=== PATIENT | male | born 1960 | race Two or more races ===

== ENCOUNTER 2018-05-30 17:00 | Inpatient (IN) | payer OTHER ==
[2018-05-30 17:22] VITALS: BMI 27.1
--- NOTE | 2018-05-30 17:26 | PDOC ---
History of Present Illness - General Chief Complaint: Injury Stated Complaint: FALL Time Seen by Provider: 05/30/18 17:26 Past History - Past Medical History Allergies/Adverse Reactions: Allergies Allergy/AdvReac Type Severity Reaction Status Date / Time No Known Allergies Allergy Verified 05/30/18 17:14 Home Medications: Ambulatory Orders Lisinopril 0 mg PO DAILY 05/30/18 COPD: No HTN: Yes - Suicide/Smoking/Psychosocial Hx Smoking History: Never smoked Hx Alcohol Use: Yes Drug/Substance Use Hx: No *Physical Exam - Vital Signs Last Vital Signs Temp Pulse Resp BP Pulse Ox 98.5 F 106 H 18 134/95 96 05/30/18 17:00 05/30/18 17:00 05/30/18 17:00 05/30/18 17:00 05/30/18 17:00
--- NOTE | 2018-05-30 17:40 | PDOC ---
History of Present Illness - General Chief Complaint: Injury Stated Complaint: FALL Time Seen by Provider: 05/30/18 17:26 History Source: Patient Exam Limitations: No Limitations - History of Present Illness Initial Comments: 57 yo M w a hx of HTN taking lisinopril presents to the ER after he slipped on a puddle of water and fell down hit his head, face, and hand on a glass table which broke. The patient sustained several laccerations to his head, one to his face and one to his wrist. The patient denies currently being in any pain from the fall, denies having a headache or nausea, and denies shortness of breath. He endorses significant left thumb weakness and decreased sensation. The patient also has mild weakness of his left pointer and middle finger but in tact sensation in the 2nd and 3rd left digits. The patient admits to having [address] Ramos - [phone] PCP: Mamie Owusu PSH: None reported Social Hx: drank 1 beer today, denies smoking or other substance usage. Allergies: NKA, NKDA Past History - Past Medical History Allergies/Adverse Reactions: Allergies Allergy/AdvReac Type Severity Reaction Status Date / Time No Known Allergies Allergy Verified 05/30/18 17:14 Home Medications: Ambulatory Orders Lisinopril 0 mg PO DAILY 05/30/18 COPD: No HTN: Yes - Suicide/Smoking/Psychosocial Hx Smoking History: Never smoked Hx Alcohol Use: Yes Drug/Substance Use Hx: No Review of Systems - Review of Systems Able to Perform ROS?: Yes Comments:: CONSTITUTIONAL: Absent: fever, no chills, no fatigue EYES: Absent: visual changes ENT: Absent: ear pain, no sore throat CARDIOVASCULAR: Absent: chest pain, no palpitations RESPIRATORY: Absent: cough, no SOB GI: Absent: abdominal pain, no nausea, no vomiting, no constipation, no diarrhea GENITOURINARY: Absent: dysuria, no frequency, no hematuria MUSKULOSKELETAL: Absent: back pain, no arthralgia, no myalgia SKIN: Absent: rash NEURO: Absent: headache *Physical Exam - Vital Signs Last Vital Signs Temp Pulse Resp BP Pulse Ox 98.5 F 106 H 18 134/95 96 05/30/18 17:00 05/30/18 17:00 05/30/18 17:00 05/30/18 17:00 05/30/18 17:00 - Physical Exam Comments: GENERAL: Patient is awake, alert and in no acute distress. Speech is clear and appropriate. HEAD: There are 4 lacerations on the Head in the parietal and occipital regions. He also has a small laceration to the left orbit. Nontender. HEENT: Pupils are equal round and reactive to light, extraocular movements are intact. The tympanic membranes are clear, no hemotympanum. No facial bone tenderness or step-off. No nasal septal hematoma. The oropharynx is clear. NECK: The trachea is midline, there is no stridor. There is no midline cervical spine tenderness, full range of motion of neck. CHEST: Non-tender, no ecchymosis or abrasions. Equal chest wall expansion bilaterally. No flail segments. Lungs are clear to auscultation bilaterally. CARDIOVASCULAR: S1-S2, regular rate and rhythm. No murmurs or rubs. ABDOMEN: Soft, nontender, nondistended. Bowel sounds are normoactive. There is no abdominal or flank ecchymosis. BACK/PELVIS: There is no midline thoracic or lumbosacral spine tenderness or step-off. Pelvis is stable and nontender. EXTREMITIES: Left hand: There is a 3 cm laceration on the left wrist approximately 2.5 cm deep. The patient has minimall strength of the left thumb. Decreased strength in the left 2nd and 3rd digit. Decreased sensation in the left thumb. Normal sensation elsewhere.No focal bony tenderness throughout. 2+ distal pulses throughout. NEURO: Alert and oriented x3. Cranial nerves II through XII are intact. 5 out of 5 motor strength x3 extremities. No other gross sensory deficits besides thumb. [id number] is intact. No pronator drift. Gait is stable. SKIN: Multiple abrasions, no hematomas, multiple lacerations. PSYCH: Affect is appropriate Procedures - Laceration/Wound Repair Left Lateral Distal Plantar Wrist Wound Length: 2.6 to 5.0 cm Wound Explored: clean, no foreign body present Wound's Depth, Shape: into muscle Irrigated w/ Saline: Yes Anesthesia: 1% Lidocaine Amount of Anesthetic (ccs): 5 Wound Repaired With: Sutures Suture Size/Type: 3:0 (1 horizontal mattress suture) Number of Deep Layer Sutures: 0 Sterile Dressing Applied: Yes Splint Applied: No Right Parietal Wound Length: 2.6 to 5.0 cm Wound Explored: foreign body removed (3 mm foreign body taken out) Wound's Depth, Shape: irregular Irrigated w/ Saline: Yes Betadine Prep: Yes Wound Debrided: minimal Wound Repaired With: [facility] (3 dede) Sterile Dressing Applied: Yes Left Temporal Wound Length: 2.6 to 5.0 cm Wound's Depth, Shape: irregular Irrigated w/ Saline: Yes Wound Repaired With: [facility] (3 dede) Sterile Dressing Applied: Yes ED Treatment Course - LABORATORY CBC & Chemistry Diagram: 05/30/18 18:20 05/30/18 18:20 Medical Decision Making - Medical Decision Making 57 yo M w a hx of HTN taking lisinopril presents to the ER after he slipped on a puddle of water and fell down hit his head, face, and hand on a glass table which broke. The patient sustained several laccerations to his head, one to his face and one to his wrist. The patient denies currently being in any pain from the fall, denies having a headache or nausea, and denies shortness of breath. He endorses significant left thumb weakness and decreased sensation. The patient also has mild weakness of his left pointer and middle finger but in tact sensation in the 2nd and 3rd left digits. The patient admits to having [address] Ramos - [phone] VS: tachycardic, otherwise wnl. Plan: Surgery - Dr. Ramos consult, pre-op labs, head ct, hand/wrist x-rays, admit patient to Dr. Ramos. Spoke with Dr. Ramos. Will clean hand, numb it up, place one suture, draw pre- op labs and Dr. Ramos will come and repair the patient's extensor tendon injury. Head CT showed small 3 mm foreign body, otherwise no acute brain injury. - 3 mm foreign body identified after thorough irrigation and removed from head. Patient had 6 lacerations on the head: 1) Right parietal - T shaped lac 4x3. 1.5 cm deep. - 3 dede placed for closure 2) right occipital - 6 cm linear lac. 0.25 cm deep - Dermabond used to close 3) right occipital #2 - 4 cm lac. 0.25 cm deep - Dermabond used to close 4) Left parietal - 5 cm lac, 0.5 cm deep - 3 dede used to close 5) Right frontal -6 cm lac. 0.25 cm deep - Dermabond used to close 6) Right frontal #2 - 4 cm lac. 0.25 cm deep - Dermabond used to close Left hand lac: Placed 1 horizontal mattress suture to temporarily hold wound closed until Dr. Ramos can operate. Patient is ready for Dr. Ramos in the OR. Admitted to Dr. Ramos service. *DC/Admit/Observation/Transfer Diagnosis at time of Disposition: Fall Qualifiers: Encounter type: initial encounter Qualified Code(s): W19.XXXA - Unspecified fall, initial encounter Wrist laceration Qualifiers: Encounter type: initial encounter Laterality: left Qualified Code(s): S61.512A - Laceration without foreign body of left wrist, initial encounter Laceration of head Qualifiers: Encounter type: initial encounter Location of open wound of head: scalp Foreign body presence: without foreign body Qualified Code(s): S01.01XA - Laceration without foreign body of scalp, initial encounter - Discharge Dispostion Condition at time of disposition: Stable - Referrals - Patient Instructions - Post Discharge Activity
--- NOTE | 2018-05-30 17:56 | PDOC ---
Attending Attestation - Resident Resident Name: Theron Silva - ED Attending Attestation I have performed the following: I have examined & evaluated the patient, The case was reviewed & discussed with the resident, I agree w/resident's findings & plan, Exceptions are as noted - Medical Decision Making 05/30/18 17:59 A portion of this note was documented by scribe services under my direction. I have reviewed the details of the note, within reason, and agree with the documentation with the following case summary and management plan written by me. Patient treated in the ED. Nursing notes are reviewed and incorporated into the medical decision-making. Vital signs reviewed. Peripheral IV access obtained by the nurse, laboratory studies are drawn and sent, reviewed and interpreted by myself. Vital Signs Temp Pulse Resp BP Pulse Ox 98.5 F 106 H 18 134/95 96 05/30/18 17:00 05/30/18 17:00 05/30/18 17:00 05/30/18 17:00 05/30/18 17:00 57-year-old male hypertension presents with mechanical fall. The patient reported that he slipped and fell and a glass shattered. He sustained a large laceration to the left scalp as well as a superficial left eyebrow laceration. Sustained a very deep left lateral wrist laceration with associated numbness of the first and second digit. Reports inability to flex or extend the left thumb. The patient is right-hand dominant. Last tetanus status is unknown. Also with R posterior scalp laceration. We had emergently consulted Dr. Ramos, surgeon and hand. He stated that the patient should go to the operating room immediately. Requested suffers on and tetanus. Patient we'll obtain a head CT for the head injury as well as left wrist x-ray to rule out foreign bodies. We'll update tetanus. Admit the patient to the OR under Dr. Koehler. For the scalp and face, we will irrigated extensively and determine if pt needs stapling or suturing. 05/30/18 18:39 CT head shows no ICH but with a small radiodense FB in R scalp. Will need to remove this. Hand xray reviewed by me, pending official radiology read. No foreign body noted. <Scout Chapin - Last Filed: 05/30/18 18:39> - HPI HPI: 05/30/18 18:06 The patient is a 57 year old male with a past medical history of HTN brought in by EMS today for evaluation s/p fall. The patient reports that he was in his kitchen when he slipped on a puddle and fell and reports that a glass broke. He notes decreased sensation and strength in his left hand. Patient denies headache, lightheadedness. Denies fever, chills. Denies chest pain, shortness of breath. Denies nausea, vomiting, diarrhea, abdominal pain. Allergies: NKA PCP: Mamie Owusu - Physicial Exam PE: 05/30/18 18:06 GENERAL: Awake, alert, and fully oriented, in no acute distress HEAD: +left lateral eyebrow laceration approximately 1.5 cm. +V shaped left lateral scalp laceration approximately 8 cm. +left lateral scalp laceration approximately 2.5 cm. +2.5 cm laceration to the right scalp. EYES: PERRLA, EOMI, sclera anicteric, conjunctiva clear ENT: Auricles normal inspection, hearing grossly normal, nares patent. Moist mucosa NECK: Normal ROM, supple, JVD, or masses LUNGS: Breath sounds equal, clear to auscultation bilaterally. No wheezes, and no crackles HEART: Regular rate and rhythm, normal S1 and S2, no murmurs, rubs or gallops ABDOMEN: Soft, nontender. No guarding, no rebound. No masses EXTREMITIES: +deep 2.5 cm laceration to the left lateral wrist with tendons visible with lacerations. +unable to flex or extend left thumb. +decreased capillary refill to the left thumb. +decreased sensation to the left first, second, and third digits. Normal range of motion, no edema. No clubbing or cyanosis. No cords, erythema, or tenderness NEUROLOGICAL: Cranial nerves II through XII grossly intact. Normal speech SKIN: Warm, Dry, normal turgor, no rashes or lesions noted. <Pastor Gallardo - Last Filed: 05/30/18 18:48> *DC/Admit/Observation/Transfer - Discharge Dispostion Decision to Admit order: Yes <Scout Chapin - Last Filed: 05/30/18 18:39> <Pastor Gallardo - Last Filed: 05/30/18 18:48> Diagnosis at time of Disposition: Fall Qualifiers: Encounter type: initial encounter Qualified Code(s): W19.XXXA - Unspecified fall, initial encounter Wrist laceration Qualifiers: Encounter type: initial encounter Laterality: left Qualified Code(s): S61.512A - Laceration without foreign body of left wrist, initial encounter Laceration of head Qualifiers: Encounter type: initial encounter Location of open wound of head: scalp Foreign body presence: without foreign body Qualified Code(s): S01.01XA - Laceration without foreign body of scalp, initial encounter - Discharge Dispostion Condition at time of disposition: Stable Heart Score/ECG Review - ECG Impressions Comment:: 05/30/18 18:48 QTc: 472 ms Normal sins rhythm, left axis deviation, right bundle branch block, abnormal EKG <Pastor Gallardo - Last Filed: 05/30/18 18:48> Attestations - Attestations 05/30/18 18:06 Documentation prepared by ANTHONY Rivera, acting as lpn medical assistant for Scout Chapin MD. <Pastor Gallardo - Last Filed: 05/30/18 18:48>
[2018-05-30] MEDS ORDERED: MORPHINE SULFATE 2 MG/ML VIAL IVPUSH PRN (17:57)
[2018-05-30] MEDS ORDERED: IBUPROFEN 600 MG TABLET (FP) PO PRN (17:57)
[2018-05-30] MEDS ORDERED: ACETAMINOPHEN 325 MG TABLET (FP) PO PRN (17:57)
[2018-05-30] MEDS: LACTATED RINGERS SOLUTION 1,000 ML IV SCH (18:00)
[2018-05-30] MEDS ORDERED: CEFAZOLIN 1 GM in DEXTROSE 5%-WATER - 50 ML IVPB ONE (18:04)
[2018-05-30] MEDS ORDERED: DIPHTH,PERTUSS(ACELL),TET 0.5 ML DISP.SYRIN IM ONE ×2 (18:04→18:16)
[2018-05-30] MEDS ORDERED: CEFAZOLIN 1 GM/D5W 1 GM/50 ML BAG ONE (18:15)
[2018-05-30 18:34] LABS: BASO % 0.5 % (0-2.0); EOS % 1.4 % (0-4.5); HEMATOCRIT 42.1 % (35.4-49); HEMOGLOBIN 13.9 GM/dL (11.7-16.9); LYMPH % 22.3 % (8-40); MCH 29.1 pg (25.7-33.7); MCHC 33.1 g/dl (32.0-35.9); MEAN CELL VOLUME 88.1 fl (80-96); MEAN PLT VOLUME 9.1 fl (7.5-11.1); NEUT % 65.8 % (42.8-82.8); PLATELET COUNT 154 K/MM3 (134-434); RBC 4.78 M/mm3 (4.00-5.60); RDW 12.6 % (11.9-15.9); WHITE BLOOD COUNT 5.2 K/mm3 (4.0-10.0)
--- NOTE | 2018-05-30 18:37 | HP ---
Admitting History and Physical - Admission Chief Complaint: left hand laceration History of Present Illness: 57 yo male PMH HTN taking lisinopril presents to the ER after he slipped on a puddle of water and fell down hit his head, face, and hand on a glass table which broke. The patient sustained several laccerations to his head, one to his face and one to his wrist. The patient denies currently being in any pain from the fall, denies having a headache or nausea, and denies shortness of breath. He endorses significant left thumb weakness and decreased sensation. The patient also has mild weakness of his left pointer and middle finger but in tact sensation in the 2nd and 3rd left digits. The patient admits to having 1 beer earlier today. History Source: Patient, Medical Record Limitations to Obtaining History: No Limitations - Smoking History Smoking history: Never smoked - Alcohol/Substance Use Hx Alcohol Use: Yes Home Medications - Allergies Allergies/Adverse Reactions: Allergies Allergy/AdvReac Type Severity Reaction Status Date / Time No Known Allergies Allergy Verified 05/30/18 17:14 - Home Medications Home Medications: Ambulatory Orders Lisinopril 0 mg PO DAILY 05/30/18 Review of Systems - Review of Systems Constitutional: denies: Chills, Fever Eyes: denies: Blind Spots, Photophobia HENT: denies: Difficult Swallowing, Throat Pain Neck: denies: Decreased ROM, Pain on Movement, Tenderness Cardiovascular: denies: Chest Pain, Palpitations Respiratory: denies: Cough, SOB Gastrointestinal: reports: Abdominal Pain. denies: Constipation, Diarrhea Genitourinary: denies: Discharge, Dysuria Breasts: reports: No Symptoms Reported. denies: Pain Musculoskeletal: denies: Back Pain, Joint Swelling Integumentary: denies: Lesions, Lump Neurological: denies: Seizure, Syncope Endocrine: denies: Unexplained Weight Gain, Unexplained Weight Loss Hematology/Lymphatic: denies: Easily Bruised, Excessive Bleeding Psychiatric: denies: Anxiety, Depression Physical Examination Vital Signs: Vital Signs Temperature 98.5 F 05/30/18 17:00 Pulse Rate 106 H 05/30/18 17:00 Respiratory Rate 18 05/30/18 17:00 Blood Pressure 134/95 05/30/18 17:00 O2 Sat by Pulse Oximetry (%) 96 05/30/18 17:00 Constitutional: Yes: Well Nourished, No Distress, Calm Eyes: Yes: Conjunctiva Clear, EOM Intact HENT: Yes: Atraumatic, Normocephalic Neck: Yes: Supple, Trachea Midline Cardiovascular: Yes: Regular Rate and Rhythm, S1, S2 Respiratory: Yes: Regular, CTA Bilaterally Gastrointestinal: Yes: Normal Bowel Sounds, Soft ...Rectal Exam: Yes: Deferred Renal/: No: CVA Tenderness - Left, CVA Tenderness - Right Musculoskeletal: No: Muscle Pain, Muscle Weakness Extremities: No: Cool, Cyanosis Edema: No Peripheral Pulses WNL: Yes Peripheral Pulses: Left Radial: 2+, Right Radial: 2+, Left Doralis Pedis: 2+, Right Dorsalis Pedis: 2+, Left Femoral: 2+, Right Femoral: 2+ Wound/Incision: Yes: Clean/Dry, Dressing Dry and Intact, Other (Left hand zone 3 extensor injury thumb, no active extension noted) Neurological: Yes: Alert, Oriented Psychiatric: Yes: Alert, Oriented Problem List - Problems (1) Wrist laceration Assessment/Plan: 57yo male with left thumb extensor lacertion and radial nerve NPO and IVF hydration IV antibiotics Left wrist laceration exploration, repair of extensor pollicis tendons and radial nerve Discussed with patient risks, benefits and alternatives of aforementioned procedure including but not limited to bleeding, infection, injury to adjacent structures, loss of function, amputation need for further procedures, ; alternatives include antibiotics, delayed or no surgery - risks of this include failure of nonoperative therapy, sepsis, recurrence, . Patient desires to proceed with operation - will take to OR for above. Informed consent signed for same. Thank you for the opportunity to participate in the care of this patient. Code(s): S61.519A - LACERATION WITHOUT FOREIGN BODY OF UNSP WRIST, INIT ENCNTR Qualifiers: Encounter type: initial encounter Laterality: left Qualified Code(s): S61.512A - Laceration without foreign body of left wrist, initial encounter (2) Laceration of head Code(s): S01.91XA - LACERATION W/O FOREIGN BODY OF UNSP PART OF HEAD, INIT Qualifiers: Encounter type: initial encounter Location of open wound of head: scalp Foreign body presence: without foreign body Qualified Code(s): S01.01XA - Laceration without foreign body of scalp, initial encounter (3) Intoxication Code(s): [id number] - (4) Fall Code(s): W19.XXXA - UNSPECIFIED FALL, INITIAL ENCOUNTER Qualifiers: Encounter type: initial encounter Qualified Code(s): W19.XXXA - Unspecified fall, initial encounter
[2018-05-30] MEDS ORDERED: ceFAZolin 2 GRAM PREMIX BAG IVPB SCH (18:45)
[2018-05-30 18:58] LABS: ALK PHOS 72 U/L (45-117); ANION GAP 6 MMOL/L (8-16); BILIRUBIN,TOTAL 0.4 mg/dL (0.2-1); BLOOD UREA NITROGEN 16 mg/dL (7-18); CALCIUM 9.1 mg/dL (8.5-10.1); CHLORIDE 103 mmol/L (98-107); CO2 31 mmol/L (21-32); CREATININE 1.3 mg/dL (0.55-1.3); GLUCOSE,RANDOM 96 mg/dL (74-106); POTASSIUM 3.3 mmol/L (3.5-5.1); SGOT/AST 27 U/L (15-37); SGPT/ALT 35 U/L (13-61); SODIUM 140 mmol/L (136-145); TOT PROT 7.3 g/dl (6.4-8.2)
[2018-05-30 19:10] LABS: INR 1.02 (0.83-1.09)
[2018-05-30 19:12] LABS: ACTIVATED PTT 33.1 SECONDS (25.2-36.5)
[2018-05-31] MEDS: LACTATED RINGERS SOLUTION 1,000 ML IV SCH ×3 (02:04→22:38)
[2018-05-31] MEDS: CEFAZOLIN 2 GM/D5W 2 GM/50 ML ML IVPB SCH ×3 (03:08→17:22)
[2018-05-31] MEDS: KCL 10 MEQ IVPB 10 MEQ/100 ML INFUS.BAG IVPB SCH ×2 (13:41→15:29)
[2018-06-01] MEDS: CEFAZOLIN 2 GM/D5W 2 GM/50 ML ML IVPB SCH ×2 (02:48→09:47)
[2018-06-01] MEDS: LACTATED RINGERS SOLUTION 1,000 ML IV SCH (02:49)
[2018-06-01 07:29] LABS: ALBUMIN 3.2 g/dl (3.4-5.0); ALK PHOS 71 U/L (45-117); ANION GAP 3 MMOL/L (8-16); BILIRUBIN,TOTAL 0.6 mg/dL (0.2-1); BLOOD UREA NITROGEN 11 mg/dL (7-18); CALCIUM 8.3 mg/dL (8.5-10.1); CHLORIDE 106 mmol/L (98-107); CO2 29 mmol/L (21-32); CREATININE 0.9 mg/dL (0.55-1.3); GLUCOSE,RANDOM 86 mg/dL (74-106); POTASSIUM 3.7 mmol/L (3.5-5.1); SGOT/AST 19 U/L (15-37); SGPT/ALT 24 U/L (13-61); SODIUM 138 mmol/L (136-145); TOT PROT 6.3 g/dl (6.4-8.2)
--- NOTE | 2018-06-01 10:33 | EKG ---
Test Reason : Blood Pressure : / mmHG Vent. Rate : 093 BPM Atrial Rate : 093 BPM P-R Int : 202 ms QRS Dur : 138 ms QT Int : 380 ms P-R-T Axes : 022 -39 013 degrees QTc Int : 472 ms NORMAL SINUS RHYTHM LEFT AXIS DEVIATION RIGHT BUNDLE BRANCH BLOCK ABNORMAL ECG WHEN COMPARED WITH ECG OF 14-JUL-2010 10:50, NO SIGNIFICANT CHANGE WAS FOUND Confirmed by HENRY ADAMS, OLIVIA ([id number]) on 06/01/2018 10:33:08 AM Referred By: Confirmed By:OLIVIA FIGUEROA MD
[2018-06-01] MEDS ORDERED: oxyCODONE HCL 5 MG TABLET PO PRN (12:12)
[2018-06-01] MEDS ORDERED: ONDANSETRON 4 MG/2 ML VIAL IVPUSH PRN (12:12)
[2018-06-01] MEDS ORDERED: PROPOFOL 20 ML ONE (12:20)
[2018-06-01] MEDS ORDERED: LIDOCAINE HCL/PF 2% SDV 5ML VIAL ONE (12:20)
[2018-06-01] MEDS ORDERED: MIDAZOLAM HCL 2 MG/2 ML SINGLE DOSE VIAL ONE (12:21)
[2018-06-01] MEDS ORDERED: BUPIVACAINE HCL/PF (5 MG/ML) 30 ML VIAL IJ ONE ×2 (13:16→13:27)
[2018-06-01] MEDS ORDERED: DEXAMETHASONE SOD PHOSPHATE 4 MG/1 ML VIAL ONE (13:21)
[2018-06-01] MEDS ORDERED: KETOROLAC TROMETHAMINE 30 MG/1 ML VIAL ONE (13:22)
--- NOTE | 2018-06-01 13:50 | OP ---
Operative Note - Note: Operative Date: 06/01/18 Pre-Operative Diagnosis: left wrist laceration Operation: left wrist wound exploration, repair of extensor pollicis longus and brevis and adduuctor pollicicis tendons and radial nerve Findings: 100% lacertion of EPL and EPB and APL at zone VII and TIV 70% laceration of radial nerve Post-Operative Diagnosis: Same as Pre-op Surgeon: Mathew Ramos Anesthesiologist/FARMWORKER: Macey Hudson Anesthesia: General, Local (0.5% marcaine 10ml) Estimated Blood Loss (mls): 2 Fluid Volume Replaced (mls): 800 Operative Report Dictated: Yes
--- NOTE | 2018-06-01 13:52 | DS ---
Physical Examination Vital Signs: Vital Signs Temperature 98.1 F 06/01/18 09:49 Pulse Rate 73 06/01/18 09:49 Respiratory Rate 17 06/01/18 09:49 Blood Pressure 126/81 06/01/18 09:49 O2 Sat by Pulse Oximetry (%) 97 06/01/18 09:00 Findings/Remarks: stable post operatively, tolerating diet Constitutional: Yes: Well Nourished, No Distress, Calm Eyes: Yes: Conjunctiva Clear, EOM Intact HENT: Yes: Atraumatic, Normocephalic Neck: Yes: Supple, Trachea Midline Cardiovascular: Yes: Regular Rate and Rhythm, S1, S2 Respiratory: Yes: Regular, CTA Bilaterally Gastrointestinal: Yes: Normal Bowel Sounds, Soft. No: Tenderness ...Rectal Exam: Yes: Deferred Renal/: No: CVA Tenderness - Left, CVA Tenderness - Right Musculoskeletal: No: Muscle Pain, Muscle Weakness Extremities: Yes: Other (Laceration left wrist dorsal radial aspect). No: Cool , Cyanosis Peripheral Pulses WNL: Yes Integumentary: Yes: Laceration (left wrist and scalp). No: Jaundice, Tattoos Wound/Incision: Yes: Clean/Dry, Well Approximated, Dressing Dry and Intact Neurological: Yes: Alert, Oriented Psychiatric: Yes: Alert, Oriented Labs: CBC, BMP 05/30/18 18:20 06/01/18 06:10 Discharge Summary Reason For Visit: LACERATION OF HEAD/FALL/LACERATION OF WRIST Current Active Problems Fall (Acute) Intoxication (Acute) Laceration of head (Acute) Wrist laceration (Acute) Procedures: Principal: Left wrist wound exploration, Repair of EPB, EPL, and APL , Repair of Radial nerve Hospital Course: admitted after a trauma for urgent surgery, uneventful procedure, stable for discharge home today Condition: Improved - Instructions Diet, Activity, Other Instructions: Postoperative instructions: You had a left thumb extensor and nerve repair on by Dr. Mathew Ramos of [facility]. Activity: Resume your usual activities gradually, but no heavy exertion or lifting more than 10-15 pounds for 4-6 weeks. Please keep left thumb spica splint clean and dry until follow up. ELEVATE YOUR LEFT ARM TO KEEP SWELLING DOWN. Eat lightly at first, but advance to your usual diet as tolerated. Pain: For pain, you may use and alternate Tylenol (acetaminophen) 1-2 pills and/ or ibuprofen 200 mg (1-3 pills) every 6 hours each as needed; this means that you can take one OR the other at 3-hour intervals. If you are prescribed a Tylenol/narcotic combination for severe pain, use it instead of plain Tylenol as needed and switch back when your pain starts decreasing. Do not take more than 4000 mg of acetaminophen in a day. Take medications as prescribed or indicated on the labeling. Follow-up: Call Dr. Ramos' office at [phone] to make your postop appointment (Friday in approximately 2 weeks after surgery as advised). Clinic is held in the [facility] on the first floor of [facility]. Call the office if you have: * increasing pain not responsive to pain medication * fever of 101F or higher * unusual or increasing bleeding or drainage from wounds * increasing redness or swelling at wound sites Also, see your primary medical doctor within 1-2 weeks. Disposition: HOME - Home Medications Comprehensive Discharge Medication List: Ambulatory Orders Lisinopril 0 mg PO DAILY 05/30/18
[2018-06-01] MEDS ORDERED: MORPHINE SULFATE 2 MG/ML VIAL IVPUSH PRN (15:43)
[2018-06-01] MEDS ORDERED: ACETAMINOPHEN 325 MG TABLET (FP) PO PRN (15:43)
[2018-06-01] MEDS ORDERED: IBUPROFEN 600 MG TABLET (FP) PO PRN (15:43)
[2018-06-01] MEDS ORDERED: LACTATED RINGERS SOLUTION 1,000 ML IV SCH (15:43)
[2018-06-01 15:55] VITALS: BP 135/87; PULSE 77; TEMP 98.1
[2018-06-01] MEDS ORDERED: CEFAZOLIN 2 GM/D5W 2 GM/50 ML ML IVPB SCH (18:00)
--- NOTE | 2018-06-02 01:46 | OP ---
DATE OF OPERATION: 06/01/2018 PREOPERATIVE DIAGNOSIS: Left wrist laceration in zone 7 extensor compartment. POSTOPERATIVE DIAGNOSIS: Left wrist laceration in zone 7 extensor compartment. PROCEDURE: Left wrist wound exploration and repair of extensor pollices longus and brevis tendons and the adductor pollices tendon as well as the radial nerve. ATTENDING SURGEON: Mathew Ramos MD CMV DRIVER: None. ANESTHESIOLOGIST: Macey Hudson MD ANESTHESIA TYPE: General with local. Local consisted of 0.5% Marcaine, a total of 10 mL was given in an area block fashion. ESTIMATED BLOOD LOSS: 2 mL INTRAVENOUS FLUIDS ADMINISTERED: 800 mL IMPLANTS: None. BRIEF FINDINGS: Patient had a 100% laceration of the EPL and EPB (extensor pollices longus and brevis) tendons in zone 7 as well as APL laceration in zone T4. Patient had a 70% laceration of the radial nerve, all repaired. INDICATIONS: The patient is a 57-year-old male who presenting to the emergency department after a fall where he sustained a laceration to the wrist in addition to some scalp lacerations. He was counseled regarding risks, benefits, and alternatives to surgical exploration of the wound and primary repair of damaged structures. Signed informed consent and was taken for the procedure. DESCRIPTION OF PROCEDURE: Patient was brought to the operating room and placed in the supine position on the operating table with the left arm perpendicular to the body's midline axis at the shoulder. Lower extremities had SCDs placed to compression. He was induced with general anesthesia and LMA was placed by Anesthesia without incident. Patient was stable. Formal timeout was completed, identifying the operative site and procedure. First with the formal prep and drape of the left arm into a surgical field, after the timeout with all parties in agreement, we began with exsanguinating the left arm to the elbow. A tourniquet was established and placed to 250 mmHg, size 18 cuff. With the arm exsanguinated, we began to first scribe Shahnaz's extension to the laceration, which was present on the wrist in zone 7. It was incised with a 15-blade scalpel, deepened and widened through the subcutaneous tissue. Care was taken then to tack back the skin flaps with 4-0 nylon for exposure. At this point, it was clear that there was a large hematoma, laceration to the radial nerve, which was approximately 70%. We took time first to do a microscopic repair. It was epineurial and was tacked in approximately 3 places with 7-0 nylon under magnification. We then turned our attention to the tendons, which were appeared lacerated 100% and retracted. The proximal ends were located and retracted into the surgical field. Distal ends were also exposed. After releasing 50% of the 1st dorsal compartment, we were able to repair the extensor pollices longus, brevis, and adductor pollices tendons individually. They were repaired in modified Hook style with a core repair of Ethibond 2-0 and an epitendinous repair of 6-0 Prolene. Once completed, with the thumb in maximum extension, the mechanics were checked and appeared to be adequate and intact. There was normal resting tenodesis as well. The area was irrigated. The skin was then repaired, the flaps as they were created, with 4-0 nylon in the interrupted fashion along the lengthy incision. The patient had the skin cleaned and sterile dressings were placed including Xeroform, 4 x 4 gauze sponges, with a web space protection. Patient was then placed into a thumb spica splint. He was stable throughout the procedure. All counts were correct. He was returned to the recovery room in stable condition. MD POOL Manley/[id number]
== END 2018-06-01 17:31 | disposition home or self-care (01) | DRG 364 ==
LOC: JER 17:00 → JERBED 17:56 → J5S 23:27 → J8W 06-01 15:51
PROC: 0LQ60ZZ Repair Left Lower Arm and Wrist Tendon, Open Approach (ICD-10-PCS; 2018-06-01)
PROC: 0WQ0XZZ Repair Head, External Approach (ICD-10-PCS; 2018-06-01)
PROC: 01Q60ZZ Repair Radial Nerve, Open Approach (ICD-10-PCS; principal; 2018-06-01 12:00)
DX: S61.512A Laceration without foreign body of left wrist, initial encounter (principal); S01.81XA Laceration without foreign body of other part of head, initial encounter; I10 Essential (primary) hypertension; W19.XXXA Unspecified fall, initial encounter; Y93.9 Activity, unspecified; Y92.89 Other specified places as the place of occurrence of the external cause; Y99.9 Unspecified external cause status
CPT/HCPCS: 36415; 70450-TC; 73110-TC-LT-FY; 73130-TC-LT-FY; 80053; 85025; 85610; 85730; 86850; 86900; 86901; 90715; 93005; 93010; 94760; 99283-25

== ENCOUNTER 2018-06-17 16:33 | Emergency (ER) | payer OTHER ==
[2018-06-17 16:40] VITALS: BP 116/81; PULSE 75; TEMP 98.1; BMI 24.3
--- NOTE | 2018-06-17 16:40 | PDOC ---
Rapid Medical Evaluation Time Seen by Provider: 06/17/18 16:35 Medical Evaluation: Allergies Allergy/AdvReac Type Severity Reaction Status Date / Time No Known Allergies Allergy Verified 06/17/18 16:36 06/17/18 16:37 I have performed a brief in-person evaluation of this patient. The patient presents with a chief complaint of: Here for staple removal, s/p admission for multiple injuries 2 weeks ago. Had scalp repair in ED and was taken to OR for tendon injury to L thumb by Dr Ramos whom he has an appt June 30. No acute sxs today Pertinent physical exam findings:well healing wounds to scalp I have ordered the following:nothing The patient will proceed to the ED for further evaluation Discharge Disposition - Diagnosis Removal of staple - Referrals - Patient Instructions - Post Discharge Activity
--- NOTE | 2018-06-17 17:19 | PDOC ---
History of Present Illness - General Chief Complaint: Suture/Staple Removal(Here) Stated Complaint: SUTURE REMOVAL Time Seen by Provider: 06/17/18 16:35 - History of Present Illness Initial Comments: 06/17/18 17:18 57-year-old male presents to the emergency room for staple removal from dede that were placed over 2 weeks ago he has no complaints Past History - Past Medical History Allergies/Adverse Reactions: Allergies Allergy/AdvReac Type Severity Reaction Status Date / Time No Known Allergies Allergy Verified 06/17/18 16:36 Home Medications: Ambulatory Orders Lisinopril 0 mg PO DAILY 05/30/18 Cephalexin [Keflex] 500 mg PO QID 5 Days #20 capsule 06/01/18 Oxycodone HCl/Acetaminophen [Percocet 5/325 -] 1 - 2 tab PO Q6H #40 tab MDD 5 COPD: No HTN: Yes - Immunization History Immunization Up to Date: No - Suicide/Smoking/Psychosocial Hx Smoking History: Never smoked Hx Alcohol Use: No Drug/Substance Use Hx: No Review of Systems - Review of Systems Constitutional: Yes: See HPI *Physical Exam - Vital Signs Last Vital Signs Temp Pulse Resp BP Pulse Ox 98.1 F 75 18 116/81 98 06/17/18 16:36 06/17/18 16:36 06/17/18 16:36 06/17/18 16:36 06/17/18 16:36 - Physical Exam Comments: 06/17/18 17:18 HEAD: NC/AT there are 3 dede on the right parietal scalp and 3 dede on the left parietal scalp MS: Full ROM in all joints without edema NEUROLOGIC: No gross sensory or motor deficits, NVID SKIN: Normal color and temperature no lesions or rashes Medical Decision Making - Medical Decision Making 06/17/18 17:18 3 dede were removed from the right and left parietal scalp 6 in total without complication *DC/Admit/Observation/Transfer Diagnosis at time of Disposition: Removal of staple - Discharge Dispostion Disposition: HOME Condition at time of disposition: Stable Decision to Admit order: No - Referrals Referrals: Mamie Owusu [Primary Care Provider] - - Patient Instructions Additional Instructions: The area clean and dry for the next 48 hours after 48 hours and may wash normally and leave the area open to air. Return to the emergency room for any redness drainage or swelling or increasing pain in the areas of the laceration where the dede were removed - Post Discharge Activity
== END 2018-06-17 17:23 | disposition home or self-care (01) ==
LOC: JERFT 16:33
DX: Z48.02 Encounter for removal of sutures (principal)
CPT/HCPCS: 99281-25